=== PATIENT | female | born 1980 | race Caucasian/White ===

== ENCOUNTER 2021-01-04 18:58 | Emergency (ER) | payer OTHER ==
[~2021-01-04 18:58] MED LIST: BENTYL10 MG PO; CIPRO500 MG PO; CYCLOBENZAPRINE10 MG PO; DOXYCYCLINE MO100 MG PO; FLAGYL500 MG PO; HYDROCODON-ACE1 EAC4 PO; IBUPROFEN800 MG PO; LEVAQUIN750 MG PO; METRONIDAZOLE500 MG PO; MIRALAX17 GM PO; NORCO 5-325 TA1 EACH PO; ONDANSETRON ODT4 MG PO; PANTOPRAZOLE SO40 MG PO; PERCOCET 5-3251 EACH PO; PHENERGAN25 M1 PO; ROBAXIN750 MG PO; VITAMIN COMPLEX; ZOFRAN ODT4 MG PO; ZOFRAN4 MG SL; ZOFRAN8 MG PO
[2021-01-04] MEDS ORDERED: CEPHALEXIN500 M1 PO (21:02)
[2021-01-04] MEDS ORDERED: PERCOCET 5-3251 EACH PO (21:02)
== END 2021-01-04 21:19 | disposition home or self-care (01) ==
LOC: FER 18:58
DX: S91.201A Unspecified open wound of right great toe with damage to nail, initial encounter (principal); Z87.19 Personal history of other diseases of the digestive system; W23.0XXA Caught, crushed, jammed, or pinched between moving objects, initial encounter
CPT/HCPCS: 73630; 96372; J1170; J1885

== ENCOUNTER 2021-03-29 17:36 | Emergency (ER) | payer OTHER ==
[~2021-03-29 17:36] MED LIST changes: +CEPHALEXIN500 M1 PO
[2021-03-30 01:06] LABS: BASOPHIL 0.2 % (0-2); EOSINOPHIL 0 % (0-5); HCT 37.1 % (37.0-47.0); HGB 12.5 g/dl (12.5-16.0); LYMPHOCYTE 4.3 % (15-48); MCH 32.3 pg (25.0-31.0); MCHC 33.7 g/dL (32.0-36.0); MCV 95.9 fL (78.0-100.0); MONOCYTE 1.1 % (0-12); MPV 9.4 fL (6.0-9.5); NEUTROPHIL 93.9 % (41-80); NRBC 0; PLT 242 K/uL (150-400); RBC 3.87 M/uL (4.20-5.40); RDW 11.7 % (11.5-14.0)
[2021-03-30 01:09] LABS: WBC 11.5 K/uL (4.0-10.5)
[2021-03-30 01:24] LABS: ALBUMIN 3.2 g/dL (3.4-5.0); BILIRUBIN - TOTAL 0.9 mg/dL (0.2-1.0); BUN/CREAT RATIO (CALC) 21.4 RATIO; CREATININE 0.56 mg/dL (0.51-0.95); POTASSIUM 3.3 mmol/L (3.5-5.1); TOTAL PROTEIN 6.2 g/dL (6.4-8.2)
[2021-03-30 03:43] LABS: BILIRUBIN NEGATIVE (NEGATIVE); BLOOD 1+ Ery/uL (NEGATIVE); CLARITY CLEAR (CLEAR); COLOR YELLOW (YELLOW); GLUCOSE (U) TRACE mg/dL (NORMAL); LEUKOCYTES NEGATIVE Leu/uL (NEGATIVE); NITRITE NEGATIVE (NEGATIVE); PROTEIN NEGATIVE (NEGATIVE); UROBILINOGEN 0.2 mg/dL (0.2-1.0)
[2021-03-30 03:54] LABS: BACTERIA TRACE; SQUAMOUS EPITHELIAL CELLS RARE
[2021-03-30] MEDS ORDERED: ONDANSETRON ODT4 MG PO (04:43)
[2021-03-30 06:07] LABS: ECSTASY (MDMA) NEGATIVE (NEGATIVE); MARIJUANA (THC) POSITIVE (NEGATIVE); METHADONE NEGATIVE (NEGATIVE); OPIATES POSITIVE (NEGATIVE)
[2021-03-30 06:08] LABS: AMPHETAMINES NEGATIVE (NEGATIVE); BARBITURATES NEGATIVE (NEGATIVE); OXYCODONE NEGATIVE (NEGATIVE)
== END 2021-03-30 06:00 | disposition home or self-care (01) ==
LOC: FER 17:36
PROVIDERS: Emergency Medicine
DX: R10.84 Generalized abdominal pain (principal); K52.9 Noninfective gastroenteritis and colitis, unspecified; Z87.19 Personal history of other diseases of the digestive system; Z90.49 Acquired absence of other specified parts of digestive tract; Z98.890 Other specified postprocedural states
CPT/HCPCS: 36415; 80053; 80305; 81001; 82150; 83690; 85025; J1170; J1200; J1630; J2405; J2550; J2930; J7030; Q0169; Q9967